=== PATIENT | female | born 1995 | race American Indian/Alaskan Native ===

== ENCOUNTER 2017-07-11 14:59 | Emergency (ER) | payer MEDICAID ==
[2017-07-11 15:00] VITALS: BMI 35.3
[2017-07-11 15:22] VITALS: RESP 18; TEMP 98.1
[2017-07-11 16:21] LABS: RBC URINE 7 /hpf (0-3); URINE BACTERIA FEW (<OCC); URINE BILIRUBIN NEGATIVE (NEGATIVE); URINE BLOOD 2+ (NEGATIVE); URINE COLOR Yellow (YELLOW); URINE GLUCOSE (UA) NORMAL (Normal); URINE KETONE NEGATIVE (NEGATIVE); URINE LEUKOCYTE ESTERASE 2+ Leu/uL (Negative); URINE PROTEIN 1+ mg/dL (NEGATIVE); WBC URINE 10 /hpf (0-5)
[2017-07-11] MEDS ORDERED: cefTRIAXone (Rocephin) 250 mg Inj IM STA (16:44)
--- NOTE | 2017-07-11 17:06 | C.PDOC ---
History Of Present Illness 21 year old female with a Hx of Chlamydia last year presents to the ER with a complaint of a nonproductive cough for the past 2-3 days. Also reports whitish discharge for the past week and requests to know if she is . Denies fever, back pain, recent travel, or abdominal pain. Time Seen by Provider: 07/11/17 15:33 Chief Complaint (Nursing): Cough, Cold, Congestion History Per: Patient History/Exam Limitations: no limitations Onset/Duration Of Symptoms: Days Current Symptoms Are (Timing): Still Present Recent travel outside of the [place]: No Past Medical History Reviewed: Historical Data, Nursing Documentation, Vital Signs Vital Signs: Last Vital Signs Temp 98.1 F 07/11/17 15:16 Pulse 69 07/11/17 17:10 Resp 18 07/11/17 17:10 BP 122/69 07/11/17 17:10 Pulse Ox 100 07/11/17 22:16 - Medical History PMH: No Chronic Diseases, Sexually Transmitted Disease Surgical History: No Surg Hx Family History: States: Unknown Family Hx - Social History Hx Tobacco Use: No Hx Alcohol Use: No Hx Substance Use: No - Immunization History Hx Tetanus Toxoid Vaccination: No Hx Influenza Vaccination: No Hx Pneumococcal Vaccination: No Review Of Systems Except As Marked, All Systems Reviewed And Found Negative. Constitutional: Negative for: Fever, Chills Cardiovascular: Negative for: Chest Pain Respiratory: Positive for: Cough Gastrointestinal: Negative for: Abdominal Pain Genitourinary: Positive for: Vaginal Discharge Physical Exam - Physical Exam Appears: Non-toxic Skin: Normal Color, Warm, Dry, No Rash Head: Atraumatic, Normacephalic Eye(s): bilateral: Normal Inspection Ear(s): Bilateral: Normal Oral Mucosa: Moist Throat: No Erythema, No Exudate Neck: Normal ROM, Supple Chest: Symmetrical, No Tenderness Cardiovascular: Rhythm Regular, No Friction Rub, No Murmur Respiratory: Normal Breath Sounds, No Accessory Muscle Use, No Rales, No Rhonchi , No Wheezing Gastrointestinal/Abdominal: Soft, No Tenderness Back: No CVA Tenderness Pelvic: Normal External Exam, Vaginal Bleeding (Scant), Vaginal Discharge ( Questionable, yellow), No Cervical Motion Tenderness, No Adnexal Tenderness, Other (Chaperoned by AYSE Rose) Extremity: Normal ROM, No Swelling Neurological/Psych: Oriented x3, Normal Speech, Normal Cognition, Normal Motor, Normal Sensation Gait: Steady ED Course And Treatment O2 Sat by Pulse Oximetry: 100 (Room air) Pulse Ox Interpretation: Normal Medical Decision Making Medical Decision Making: Plan: * GC/Chlamydia * Rocephin * Zithromax * Urinalysis Patient discharged home with Rx and instructed to follow up with PMD. Disposition - Disposition Referrals: Willie Presley MD [Staff Provider] - Disposition: HOME/ ROUTINE Disposition Time: 17:04 Condition: GOOD Additional Instructions: Follow up with the medical doctor within 1-2 days. return if worsened. Prescriptions: Loratadine [Claritin] 10 mg PO DAILY #10 tab Metronidazole [Metrogel] 60 gm TP DAILY #2 gel..gram. Instructions: Upper Respiratory Infection (ED), Vaginitis (ED) Forms: [employer] ([place]) - Clinical Impression Clinical Impression: Vaginitis, Upper respiratory infection - Scribe Statement The provider has reviewed the documentation as recorded by the Scribe Rosalino Ngo All medical record entries made by the Scribe were at my direction and personally dictated by me. I have reviewed the chart and agree that the record accurately reflects my personal performance of the history, physical exam, medical decision making, and the department course for this patient. I have also personally directed, reviewed, and agree with the discharge instructions and disposition.
[2017-07-11 17:10] VITALS: BP 122/69; PULSE 69
[2017-07-11 22:08] VITALS: O2SAT 100
== END 2017-07-11 17:11 | disposition home or self-care (01) ==
LOC: C.ER 14:59
DX: J06.9 Acute upper respiratory infection, unspecified (principal); N76.0 Acute vaginitis
CPT/HCPCS: 81001; 87491; 87591; 96372; 99285; J0696